=== PATIENT | male | born 1965 | race Caucasian/White ===

== ENCOUNTER → 2017-02-12 | Outpatient (CLI) | payer BC ==
--- NOTE | 2017-02-12 08:54 | CT ---
STUDY: CT HEAD WITHOUT CONTRAST HISTORY: Unspecified visual disturbance. Headaches. TECHNIQUE: Multiple axial images of the head were obtained from the skull base to the vertex without administration of IV contrast. Automated exposure control (AEC) was utilized to adjust the MA and/o r kV. COMPARISON: None. FINDINGS: The sulci, cisterns and ventricles are age appropriate. There is no evidence of acute terr itorial infarction, hemorrhage, mass, mass effect, or midline shift. There are no abnormal intra-axia l or extra-axial fluid collections. There is no evidence of acute osseous abnormality or significant soft tissue swelling. Visualized par anasal sinuses and mastoid air cells are predominately clear. IMPRESSION: 1. No evidence of acute intracranial abnormality. Reported By:
== END ==
LOC: RAD 07:04
PROVIDERS: ATTEND Internal Medicine
DX: H53.8 Other visual disturbances (principal)
CPT/HCPCS: 70450